=== PATIENT | male | born 1975 | race Caucasian/White ===

== ENCOUNTER 2017-03-02 12:30 | Inpatient (IN) | payer OTHER ==
[2017-03-02 15:18] VITALS: BMI 29.5
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
[2017-03-02] MEDS ORDERED: MAG HYDROX/AL HYDROX/SIMETH 30 ML UNIT-DOSE CUP PO PRN (17:20)
[2017-03-02] MEDS ORDERED: chlordiazePOXIDE HCL 25 MG CAPSULE PO PRN (17:20)
[2017-03-02] MEDS ORDERED: LOPERAMIDE HCL 2 MG CAPSULE PO PRN (17:20)
[2017-03-02] MEDS ORDERED: guaiFENesin/D-METHORPHAN HB 10 ML UNIT-DOSE CUPS PO PRN (17:20)
[2017-03-02] MEDS ORDERED: chlordiazePOXIDE HCL 25 MG CAPSULE PO ONE (17:20)
[2017-03-02] MEDS ORDERED: P-EPHED 60MG/TRIPROLIDI 2.5MG TABLET PO PRN (17:20)
[2017-03-02] MEDS ORDERED: IBUPROFEN 400 MG TABLET (FP) PO PRN (17:20)
[2017-03-02] MEDS ORDERED: ACETAMINOPHEN 325 MG TABLET (FP) PO PRN (17:20)
[2017-03-02] MEDS ORDERED: MAGNESIUM HYDROX 2400MG/30ML ORAL SUSPENSION 30 ML CUP PO PRN (17:20)
[2017-03-02] MEDS ORDERED: METHADONE HCL 10 MG TABLET (FOR DETOX USE ONLY) PO ONE ×2 (17:20→23:00)
[2017-03-02] MEDS ORDERED: MAGNESIUM CITRATE 300 ML BOTTLE PO PRN (17:20)
[2017-03-02] MEDS ORDERED: MENTHOL/PHENOL 1 EACH UD MM PRN (17:20)
[2017-03-02] MEDS ORDERED: CYCLOBENZAPRINE HCL 10 MG TABLET (FP) PO PRN (17:26)
[2017-03-02] MEDS: NICOTINE 21 MG/24 HOURS TOPICAL PATCH TD SCH (18:22)
[2017-03-02 22:01] LABS: URINE APPEARANCE TURBID; URINE BILIRUBIN NEGATIVE (NEGATIVE); URINE BLOOD NEGATIVE (NEGATIVE); URINE COLOR YELLOW; URINE GLUCOSE (UA) NEGATIVE (NEGATIVE); URINE KETONE TRACE (NEGATIVE); URINE LEUK ESTERASE TRACE (NEGATIVE); URINE NITRITE NEGATIVE (NEGATIVE); URINE PROTEIN NEGATIVE (NEGATIVE); URINE UROBILINOGEN NEGATIVE mg/dL (0.2-1.0)
[2017-03-02 22:28] LABS: URINE MUCUS RARE; URINE RBC 5 /hpf (0-3); URINE WBC 3 /hpf (3-5)
[2017-03-02] MEDS: THIAMINE HCL 100 MG TABLET (FP) PO SCH (22:40)
[2017-03-02] MEDS: cloNIDine HCL 0.1 MG TABLET PO SCH (22:40)
[2017-03-02] MEDS: chlordiazePOXIDE HCL 25 MG CAPSULE PO SCH (22:40)
[2017-03-03] MEDS: chlordiazePOXIDE HCL 25 MG CAPSULE PO SCH ×5 (05:53→22:44)
[2017-03-03] MEDS ORDERED: METHADONE HCL 10 MG TABLET (FOR DETOX USE ONLY) PO SCH (10:00)
[2017-03-03 10:02] LABS: MCH 27.2 pg (25.7-33.7); MEAN CELL VOLUME 82.2 fl (80-96); MEAN PLT VOLUME 9.4 fl (7.5-11.1); PLATELET COUNT 137 K/MM3 (134-434); RDW 13.1 % (11.9-15.9); WHITE BLOOD COUNT 4.1 K/mm3 (4.0-10.0)
[2017-03-03] MEDS: cloNIDine HCL 0.1 MG TABLET PO SCH ×2 (10:04→22:44)
[2017-03-03] MEDS: PRENATAL VITAMINS W/ FOLIC ACID TABLET (FP) PO SCH (10:04)
[2017-03-03] MEDS: NICOTINE 21 MG/24 HOURS TOPICAL PATCH TD SCH (10:06)
[2017-03-03 10:33] LABS: ALBUMIN 3.2 g/dl (3.4-5.0); ALK PHOS 261 U/L (45-117); ANION GAP 6 (8-16); BILIRUBIN,TOTAL 0.7 mg/dL (0.2-1.0); CALCIUM 8.2 mg/dL (8.5-10.1); CO2 30 mmol/L (21-32); CREATININE 0.8 mg/dL (0.7-1.3); GLUCOSE,RANDOM 98 mg/dL (74-106); SGOT/AST 25 U/L (15-37); SGPT/ALT 48 U/L (12-78); TOT PROT 5.8 g/dl (6.4-8.2)
--- NOTE | 2017-03-03 12:17 | CONSULT ---
[facility] Psychiatric Consult - Data Date of interview: 03/03/17 Admission source: [facility] Identifying data: Readmission to [facility] for this 41 y/o male seeking detox treatment on for alcohol,heroin and cocaine dependence.Patient is single without children,domiciled,unemployed and supported on SSI benefits. Substance Abuse History: Fully discussed in this interview.Mr Maxwell confirms this report as accurate : Smoking Cessation. Smoking history: Current every day smoker. Have you smoked in the past 12 months: Yes. Aproximately how many cigarettes per day: 10. Hx Chewing Tobacco Use: No. Initiated information on smoking cessation: Yes. 'Breaking Loose' booklet given : 03/02/17. - Substance & Tx. History. Hx Alcohol Use: Yes. Hx Substance Use : Yes. Substance Use Type: Alcohol, Cocaine, Heroin. - Substances Abused. Heroin. Route: Injection. Frequency: Daily. Amount used: 15 BAGS. Age of first use: 17. Date of Last Use: 03/02/17. Cocaine. Route: Injection. Frequency: Daily. Amount used: 5 BAGS. Age of first use: 15. Date of Last Use : 03/02/17. Alcohol. Route: Oral. Frequency: Daily. Amount used: 5 BEERS AND UP. Age of first use: 11. Date of Last Use: 03/02/17 Medical History: Patient endorses good general health. Psychiatric History: Patient admits to a history of psychiatric hospitalizations (in [facility]).Diagnosed with MDD and PTSD.Used to be on prozac,xanax,paxil,klonopin and risperdal.Mr Maxwell indicates that he has not taken these medications " a while back " which is the equivalent of four years on non-adherence.Patient declares,in this interview,that he will abstain from psychotropic medications.He reports a history of suicide attempt via deliberate overdose with heroin " years ago ". Physical/Sexual Abuse/Trauma History: Patient declines to discuss this domain. Additional Comment: Urine Drug Screen Results: KARTHIKEYAN-Cocaine, OPI-Opiates, MTD- Methadone.Noted. Mental Status Exam - Mental Status Exam Alert and Oriented to: Time, Place, Person Cognitive Function: Good Patient Appearance: Well Groomed Mood: Nervous, Withdrawn Affect: Appropriate, Normal Range Patient Behavior: Fatigued, Appropriate, Cooperative Speech Pattern: Clear (bilingual) Voice Loudness: Normal Thought Process: Goal Oriented Thought Disorder: Not Present Hallucinations: Denies Suicidal Ideation: Denies Homicidal Ideation: Denies Insight/Judgement: Poor Sleep: Well Appetite: Good Muscle strength/Tone: Normal Gait/Station: Normal Psychiatric Findings - Problem List ([place] 1, 2,3) (1) Alcohol dependence with uncomplicated withdrawal Status: Acute (2) Opioid dependence with withdrawal Status: Acute (3) Cocaine dependence Status: Acute Qualifiers: Substance use status: uncomplicated Qualified Code(s): F14.20 - Cocaine dependence, uncomplicated (4) Nicotine dependence Status: Acute Qualifiers: Nicotine product type: cigarettes Substance use status: uncomplicated Qualified Code(s): F17.210 - Nicotine dependence, cigarettes, uncomplicated (5) Drug-induced mood disorder Status: Acute (6) Hepatitis C Status: Chronic Qualifiers: Viral hepatitis chronicity: chronic Hepatic coma status: without hepatic coma Qualified Code(s): B18.2 - Chronic viral hepatitis C - Initial Treatment Plan Initial Treatment Plan: Psychoeducation.Detoxification.Observation.
[2017-03-03 12:27] LABS: HIV 1 & 2 AB NEGATIVE; HIV 1 AGp24 NEGATIVE
--- NOTE | 2017-03-03 16:12 | PN ---
S CIWA - CIWA Score Nausea/Vomitin Muscle Tremors: 4-Moderate,w/Arms Extend Anxiety: 3 Agitation: 2 Paroxysmal Sweats: 1-Minimal Palms Moist Orientation: 4Disoriented Place/Person Tacttile Disturbances: 1-Very Mild Itch/Numbness Auditory Disturbances: 0-None Visual Disturbances: 1-Very Mild Sensitivity Headache: 0-None Present CIWA-Ar Total Score: 19 BHS COWS - Scale Resting Pulse: 0= [place] 80 or Below Sweatin= Chills/Flushing Restless Observation: 1= Difficult to Sit Still Pupil Size: 0= Normal to Room Light Bone or Joint Aches: 2= Severe Diffuse Aches Runny Nose/ Eye Tearin= Nasal Congestion GI Upset > 30mins: 2= Nausea/Diarrhea Tremor Observation of Outstretched Hands: 2= Slight Tremor Visible Yawning Observation: 1= 1-2x During Session Anxiety or Irritability: 2=Irritable/Anxious Goose Flesh Skin: 3=Piloerection COWS Score: 15 S Progress Note (SOAP) Subjective: Tremors, Nausea, Interrupted Sleep, Body Aches, Fatigue. Objective: PT. A & O X 1 (DISORIENTED ABOUT DAY/DATE AND ABOUT CURRENT LOCATION). PT. OBSERVED AMBULATING AMBULATING ON UNIT. NO ACUTE DISTRESS. 03/03/17 16:09 Vital Signs Temperature 99.0 F 03/03/17 14:14 Pulse Rate 61 03/03/17 14:14 Respiratory Rate 18 03/03/17 14:14 Blood Pressure 104/60 03/03/17 14:14 O2 Sat by Pulse Oximetry (%) Laboratory Tests 03/02/17 03/03/17 03/03/17 21:45 08:00 08:00 WBC 4.1 RBC 4.70 Hgb 12.8 Hct 38.6 MCV 82.2 MCH 27.2 MCHC 33.0 RDW 13.1 Plt Count 137 MPV 9.4 Sodium Potassium Chloride Carbon Dioxide Anion Gap BUN Creatinine Creat Clearance w eGFR Random Glucose Calcium Total Bilirubin AST ALT Alkaline Phosphatase Total Protein Albumin Urine Color Yellow Urine Appearance Turbid Urine pH 5.0 D Ur Specific [place] 1.025 Urine Protein Negative Urine Glucose (UA) Negative Urine Ketones Trace H Urine Blood Negative Urine Nitrite Negative Urine Bilirubin Negative Urine Urobilinogen Negative Ur Leukocyte Esterase Trace Urine RBC 5 Urine WBC 3 Urine Mucus Rare RPR Titer HIV 1&2 Antibody Screen Negative HIV P24 Antigen Negative 03/03/17 03/03/17 08:00 08:00 WBC RBC Hgb Hct MCV MCH MCHC RDW Plt Count MPV Sodium 140 Potassium 3.9 Chloride 104 Carbon Dioxide 30 D Anion Gap 6 L BUN 11 Creatinine 0.8 Creat Clearance w eGFR > 60 Random Glucose 98 Calcium 8.2 L Total Bilirubin 0.7 D AST 25 D ALT 48 D Alkaline Phosphatase 261 H Total Protein 5.8 L Albumin 3.2 L Urine Color Urine Appearance Urine pH Ur Specific [place] Urine Protein Urine Glucose (UA) Urine Ketones Urine Blood Urine Nitrite Urine Bilirubin Urine Urobilinogen Ur Leukocyte Esterase Urine RBC Urine WBC Urine Mucus RPR Titer Nonreactive HIV 1&2 Antibody Screen HIV P24 Antigen LABS NOTED. Assessment: 03/03/17 16:10 WITHDRAWAL SYMPTOMS. Plan: CONTINUE DETOX. REPEAT AP ON 02/02/2017 FOR ELEVATED ADMISSION LEVEL.
[2017-03-03] MEDS: THIAMINE HCL 100 MG TABLET (FP) PO SCH (22:43)
[2017-03-03] MEDS: diphenhydrAMINE HCL 50 MG CAPSULE PO PRN (22:44)
[2017-03-04] MEDS: chlordiazePOXIDE HCL 25 MG CAPSULE PO SCH ×3 (06:25→17:42)
--- NOTE | 2017-03-04 08:11 | EKG ---
Test Reason : Blood Pressure : / mmHG Vent. Rate : 067 BPM Atrial Rate : 067 BPM P-R Int : 146 ms QRS Dur : 082 ms QT Int : 410 ms P-R-T Axes : 074 072 044 degrees QTc Int : 433 ms NORMAL SINUS RHYTHM POSSIBLE LEFT ATRIAL ENLARGEMENT BORDERLINE ECG NO PREVIOUS ECGS AVAILABLE Confirmed by KAN EDWARDS, BHAVNA ([id number]) on 03/04/2017 8:10:45 AM Referred By: Confirmed By:BHAVNA OMER MD
[2017-03-04] MEDS: cloNIDine HCL 0.1 MG TABLET PO SCH ×2 (10:05→22:21)
[2017-03-04] MEDS: NICOTINE 21 MG/24 HOURS TOPICAL PATCH TD SCH (10:05)
[2017-03-04] MEDS: METHADONE HCL 5 MG TABLET (FOR DETOX USE ONLY) PO SCH (10:05)
[2017-03-04] MEDS: PRENATAL VITAMINS W/ FOLIC ACID TABLET (FP) PO SCH (10:05)
[2017-03-04] MEDS: NICOTINE POLACRILEX 2 MG GUM BUC PRN (10:05)
--- NOTE | 2017-03-04 14:27 | PN ---
S CIWA - CIWA Score Nausea/Vomitin Muscle Tremors: 4-Moderate,w/Arms Extend Anxiety: 4-Mod. Anxious/Guarded Agitation: 4-Moderately Restless Paroxysmal Sweats: 3 Orientation: 0-Oriented Tacttile Disturbances: 1-Very Mild Itch/Numbness Auditory Disturbances: 0-None Visual Disturbances: 0-None Headache: 2-Mild CIWA-Ar Total Score: 21 BHS COWS - Scale Resting Pulse: 0= [place] 80 or Below Sweatin= Chills/Flushing Restless Observation: 3= Extraneous Movement Pupil Size: 0= Normal to Room Light Bone or Joint Aches: 2= Severe Diffuse Aches Runny Nose/ Eye Tearin= Runny Nose/Eyes GI Upset > 30mins: 2= Nausea/Diarrhea Tremor Observation of Outstretched Hands: 2= Slight Tremor Visible Yawning Observation: 1= 1-2x During Session Anxiety or Irritability: 2=Irritable/Anxious Goose Flesh Skin: 0=Smooth Skin COWS Score: 15 S Progress Note (SOAP) Subjective: Sweating, nausea, chills, tremor, anxious Objective: 03/04/17 14:25 Last Vital Signs Temp Pulse Resp BP Pulse Ox 98.2 F 63 18 107/68 03/04/17 10:22 03/04/17 10:22 03/04/17 10:22 03/04/17 10:22 Laboratory Tests 03/02/17 03/03/17 03/03/17 21:45 08:00 08:00 WBC 4.1 RBC 4.70 Hgb 12.8 Hct 38.6 MCV 82.2 MCH 27.2 MCHC 33.0 RDW 13.1 Plt Count 137 MPV 9.4 Sodium Potassium Chloride Carbon Dioxide Anion Gap BUN Creatinine Creat Clearance w eGFR Random Glucose Calcium Total Bilirubin AST ALT Alkaline Phosphatase Total Protein Albumin Urine Color Yellow Urine Appearance Turbid Urine pH 5.0 D Ur Specific [place] 1.025 Urine Protein Negative Urine Glucose (UA) Negative Urine Ketones Trace H Urine Blood Negative Urine Nitrite Negative Urine Bilirubin Negative Urine Urobilinogen Negative Ur Leukocyte Esterase Trace Urine RBC 5 Urine WBC 3 Urine Mucus Rare RPR Titer HIV 1&2 Antibody Screen Negative HIV P24 Antigen Negative 03/03/17 03/03/17 08:00 08:00 WBC RBC Hgb Hct MCV MCH MCHC RDW Plt Count MPV Sodium 140 Potassium 3.9 Chloride 104 Carbon Dioxide 30 D Anion Gap 6 L BUN 11 Creatinine 0.8 Creat Clearance w eGFR > 60 Random Glucose 98 Calcium 8.2 L Total Bilirubin 0.7 D AST 25 D ALT 48 D Alkaline Phosphatase 261 H Total Protein 5.8 L Albumin 3.2 L Urine Color Urine Appearance Urine pH Ur Specific [place] Urine Protein Urine Glucose (UA) Urine Ketones Urine Blood Urine Nitrite Urine Bilirubin Urine Urobilinogen Ur Leukocyte Esterase Urine RBC Urine WBC Urine Mucus RPR Titer Nonreactive HIV 1&2 Antibody Screen HIV P24 Antigen Labs noted Assessment: 03/04/17 14:26 Withdrawal symptoms Plan: Continue detox Encouraged to drink lots of water
[2017-03-04] MEDS: chlordiazePOXIDE 5 MG CAPSULE PO SCH (22:21)
[2017-03-04] MEDS: THIAMINE HCL 100 MG TABLET (FP) PO SCH (22:21)
[2017-03-04] MEDS: diphenhydrAMINE HCL 50 MG CAPSULE PO PRN (22:22)
[2017-03-05] MEDS: chlordiazePOXIDE 5 MG CAPSULE PO SCH ×3 (05:36→17:44)
[2017-03-05] MEDS: PRENATAL VITAMINS W/ FOLIC ACID TABLET (FP) PO SCH (10:03)
[2017-03-05] MEDS: METHADONE HCL 5 MG TABLET (FOR DETOX USE ONLY) PO SCH (10:03)
[2017-03-05] MEDS: cloNIDine HCL 0.1 MG TABLET PO SCH ×2 (10:04→22:09)
[2017-03-05] MEDS: NICOTINE 21 MG/24 HOURS TOPICAL PATCH TD SCH (10:04)
[2017-03-05] MEDS: NICOTINE POLACRILEX 2 MG GUM BUC PRN ×2 (10:06→17:45)
--- NOTE | 2017-03-05 10:15 | PN ---
BHS Progress Note (SOAP) Subjective: Sweating,interrupted sleep,restless Objective: 03/05/17 10:10 Vital Signs - 8 hr 03/05/17 03/05/17 03/05/17 03:23 06:59 09:11 Temperature 97.6 F 96.9 F L Pulse Rate 73 66 Respiratory 18 18 18 Rate Blood Pressure 113/78 111/72 Laboratory Last Values WBC 4.1 K/mm3 (4.0-10.0) 03/03/17 08:00 RBC 4.70 M/mm3 (4.00-5.60) 03/03/17 08:00 Hgb 12.8 GM/dL (11.7-16.9) 03/03/17 08:00 Hct 38.6 % (35.4-49) 03/03/17 08:00 MCV 82.2 fl (80-96) 03/03/17 08:00 MCH 27.2 pg (25.7-33.7) 03/03/17 08:00 MCHC 33.0 g/dl (32.0-35.9) 03/03/17 08:00 RDW 13.1 % (11.9-15.9) 03/03/17 08:00 Plt Count 137 K/MM3 (134-434) 03/03/17 08:00 MPV 9.4 fl (7.5-11.1) 03/03/17 08:00 Sodium 140 mmol/L (136-145) 03/03/17 08:00 Potassium 3.9 mmol/L (3.5-5.1) 03/03/17 08:00 Chloride 104 mmol/L (98-107) 03/03/17 08:00 Carbon Dioxide 30 mmol/L (21-32) D 03/03/17 08:00 Anion Gap 6 (8-16) L 03/03/17 08:00 BUN 11 mg/dL (7-18) 03/03/17 08:00 Creatinine 0.8 mg/dL (0.7-1.3) 03/03/17 08:00 Creat Clearance w eGFR > 60 (>60) 03/03/17 08:00 Random Glucose 98 mg/dL (74-106) 03/03/17 08:00 Calcium 8.2 mg/dL (8.5-10.1) L 03/03/17 08:00 Total Bilirubin 0.7 mg/dL (0.2-1.0) D 03/03/17 08:00 AST 25 U/L (15-37) D 03/03/17 08:00 ALT 48 U/L (12-78) D 03/03/17 08:00 Alkaline Phosphatase 261 U/L (45-117) H 03/03/17 08:00 Total Protein 5.8 g/dl (6.4-8.2) L 03/03/17 08:00 Albumin 3.2 g/dl (3.4-5.0) L 03/03/17 08:00 Urine Color Yellow 03/02/17 21:45 Urine Appearance Turbid 03/02/17 21:45 Urine pH 5.0 (5.0-8.0) D 03/02/17 21:45 Ur Specific [place] 1.025 (1.005-1.025) 03/02/17 21:45 Urine Protein Negative (NEGATIVE) 03/02/17 21:45 Urine Glucose (UA) Negative (NEGATIVE) 03/02/17 21:45 Urine Ketones Trace (NEGATIVE) H 03/02/17 21:45 Urine Blood Negative (NEGATIVE) 03/02/17 21:45 Urine Nitrite Negative (NEGATIVE) 03/02/17 21:45 Urine Bilirubin Negative (NEGATIVE) 03/02/17 21:45 Urine Urobilinogen Negative mg/dL (0.2-1.0) 03/02/17 21:45 Ur Leukocyte Esterase Trace (NEGATIVE) 03/02/17 21:45 Urine RBC 5 /hpf (0-3) 03/02/17 21:45 Urine WBC 3 /hpf (3-5) 03/02/17 21:45 Urine Mucus Rare 03/02/17 21:45 RPR Titer Nonreactive (NONREACTIVE) 03/03/17 08:00 HIV 1&2 Antibody Screen Negative 03/03/17 08:00 HIV P24 Antigen Negative 03/03/17 08:00 labs noted Assessment: 03/05/17 10:11 Withdrawal sx. Plan: Continue detox
[2017-03-05] MEDS: diphenhydrAMINE HCL 50 MG CAPSULE PO PRN (22:09)
[2017-03-05] MEDS: THIAMINE HCL 100 MG TABLET (FP) PO SCH (22:09)
[2017-03-05] MEDS: chlordiazePOXIDE HCL 10 MG CAPSULE PO SCH (22:10)
[2017-03-06] MEDS: chlordiazePOXIDE HCL 10 MG CAPSULE PO SCH ×2 (06:01→10:08)
[2017-03-06 06:30] VITALS: PULSE 75
[2017-03-06 09:31] VITALS: BP 102/61; TEMP 97.5
[2017-03-06] MEDS ORDERED: METHADONE HCL 10 MG TABLET (FOR DETOX USE ONLY) PO SCH (10:00)
[2017-03-06] MEDS: PRENATAL VITAMINS W/ FOLIC ACID TABLET (FP) PO SCH (10:07)
[2017-03-06] MEDS: cloNIDine HCL 0.1 MG TABLET PO SCH (10:07)
[2017-03-06] MEDS: NICOTINE 21 MG/24 HOURS TOPICAL PATCH TD SCH (10:08)
[2017-03-06] MEDS ORDERED: HYDROCORTISONE 1% TOPICAL CREAM 30 GM TUBE TP ONE (10:09)
--- NOTE | 2017-03-06 10:12 | PN ---
BHS Progress Note (SOAP) Subjective: Sweating,interrupted sleep,restless. C/o Rash lt. forearm Objective: 03/06/17 10:11 Vital Signs - 8 hr 03/06/17 03/06/17 03/06/17 04:06 06:30 09:30 Temperature 97.2 F L 97.5 F L Pulse Rate 75 75 Respiratory 18 18 16 Rate Blood Pressure 113/67 102/61 Ext. : rash left forearm Assessment: 03/06/17 10:11 Withdrawal sx. Plan: Continue detox HC 1% qid
[2017-03-06] MEDS ORDERED: HYDROCORTISONE 1% TOPICAL CREAM 30 GM TUBE TP SCH (14:00)
[2017-03-07] MEDS ORDERED: METHADONE HCL 5 MG TABLET (FOR DETOX USE ONLY) PO SCH (06:00)
== END 2017-03-06 13:04 | disposition home or self-care (01) | DRG 773 ==
LOC: YASAS 12:30 → Y3N 17:06
PROVIDERS: ADMIT Internal Medicine; ATTEND Internal Medicine
PROC: HZ2ZZZZ Detoxification Services for Substance Abuse Treatment (ICD-10-PCS; principal; 2017-03-02)
DX: F11.23 Opioid dependence with withdrawal (principal); F10.230 Alcohol dependence with withdrawal, uncomplicated; F14.20 Cocaine dependence, uncomplicated; F12.20 Cannabis dependence, uncomplicated; F17.210 Nicotine dependence, cigarettes, uncomplicated; F19.24 Other psychoactive substance dependence with psychoactive substance-induced mood disorder; F32.9 Major depressive disorder, single episode, unspecified; B18.2 Chronic viral hepatitis C; R12 Heartburn; Z87.898 Personal history of other specified conditions; Z91.5 Personal history of self-harm
CPT/HCPCS: 36415; 80053; 81003; 81015; 84075; 85027; 86593; 87389; 93005; 93010